=== PATIENT | female | born 1955 | race Caucasian/White ===

== ENCOUNTER 2018-09-29 15:35 | Inpatient (IN) | payer MEDICARE, MEDICAID ==
[2018-09-29] MEDS ORDERED: Sodium Chloride 0.9% 1,000 ML IV ONE (15:43)
[2018-09-29 16:14] LABS: HEMATOCRIT 47.8 % (41.0-60); HEMOGLOBIN 15.8 gm/dL (12-16); MEAN CELL VOLUME 94.1 fl (81-100); MEAN CORPUSCULAR HGB CONC 32.9 pg (28.0-36.0); MEAN PLATELET VOLUME 8.7 fl; PLATELET COUNT 348 Th/cmm (150-400); RED BLOOD COUNT 5.08 Mil/cmm (3.80-5.10); RED CELL DISTRIBUTION WIDTH 13.9 % (11.5-20.0)
[2018-09-29 16:16] LABS: WHITE BLOOD COUNT 16.9 Th/cmm (4.8-10.8)
--- NOTE | 2018-09-29 16:21 | ED Physician Chart ---
ED Chief Complaint/HPI - Patient Information Date Seen:: 09/29/18 Time Seen:: 15:55 Chief Complaint:: Weakness History of Present Illness:: onset x 3 days of generalized weakness, failure to thrive, and poor oral intake ; no report of trauma, H/As, S/T, neck pain, cough, C/P, SOB, Abd. 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; Allergies:: Allergies Allergy/AdvReac Type Severity Reaction Status Date / Time iodine Allergy Verified 09/29/18 15:56 Vitals:: Vital Signs - 8 hr 09/29/18 15:56 Temp 98.6 F HR 118 RR 21 BP 110/74 O2 Sat % 93 Historian:: Patient, EMS Review:: Nurse's Note Reviewed, Old Chart Reviewed, EMS run form Reviewed ED Review of Systems - Review of Systems General/Constitutional: No fever, No chills, No weight loss, Weakness, No diaphoresis, No edema, No loss of appetite Skin: No skin lesions, No rash, No bruising Head: No headache, No light-headedness Eyes: No loss of vision, No pain, No diplopia ENT: No earache, No nasal drainage, No sore throat, No tinnitus Neck: No neck pain, No swelling, No thyromegaly, No stiffness, No mass noted Cardio Vascular: No chest pain, No palpitations, No PND, No orthopnea, No edema Pulmonary: No SOB, No cough, No sputum, No wheezing GI: No nausea, No vomiting, No diarrhea, No pain, No melena, No hematochezia, No constipation, No hematemesis G/U: No dysuria, No frequency, No hematuria, No nacturia 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: No vaginal discharge, No abnormal vaginal bleed, No contraction Musculoskeletal: No bone or joint pain, No back pain, No muscle pain Endocrine: No polyuria, No polydipsia Psychiatric: No prior psych history, No depression, No anxiety, No suicidal ideation, No homicidal ideation, No auditory hallucination, No visual hallucination Hematopoietic: No bruising, No lymphadenopathy Allergic/Immuno: No urticaria, No angioedema Neurological: No syncope, Focal symptoms, Weakness, No paresthesia, No headache , No seizure, No dizziness, Confusion, No vertigo ED Past Medical History - Past Medical History Obtainable: Yes Past Medical History: HTN, CAD, CVA/TIA, PUD/GERD, Arthritis, Dementia Family History: HTN Social History: Non Smoker, No Alcohol, No Drug Use, Single, Care Facility Surgical History: None Psychiatricy History: None Medication: Reviewed Family Medical History - Family Member Mother History Unknown: Yes ED Physical Exam - Physical Examination General/Constitutional: Awake, Well-developed, well-nourished, Alert, No distress, GCS 15, Non-toxic appearing, Ambulatory Head: Atraumatic Eyes: Lids, conjuctiva normal, PERRL, EOMI Skin: Nl inspection, No rash, No skin lesions, No ecchymosis, No lymphadenopathy Other Skin comments:: Poor Turgor with Dry Mucous Membranes ENMT: External ears, nose nl, TM canals nl, Nasal exam nl, Lips, teeth, gums nl , Oropharynx nl, Tonsils nl Neck: Nontender, Full ROM w/o pain, No JVD, No nuchal rigidity, No bruit, No mass, No stridor Respiratory: Nl effort/Exclusion Other Respiratory comments:: Lungs: + Rales and Rhonchi Cardio Vascular: RRR, No murmur, gallop, rubs, NL S1 S2, Carotid/Femoral/Distal pulses equal bilaterally GI: No tenderness/rebounding/guarding, No organomegaly, No hernia, Normal BS's, Nondistended, No mass/bruits, No McBurney tenderness : No CVA tenderness Extremities: No tenderness or effusion, Full ROM, normal strength in all extremities, No edema, Normal digits & nails Neuro/Psych: Alert/oriented, DTR's symmetric, Normal sensory exam, Normal motor strength, Judgement/insight normal, Mood normal, Normal gait Other Neuro/Psych comments:: + Ronal-paresis; Disoriented and Confused Misc: Normal back, No paraspinal tenderness ED Labs/Radiology/EKG Results - Lab Results Comments:: Reviewed - Radiology Results Comments:: CXR: + RML Infiltrate - EKG Interpretations EKG Time:: 17:01 Rate & Rhythm: 115; ST Comments:: non-specific st-t changes ED Septic Shock - . Is Septic Shock (SBP<90, OR Lactate>4 mmol\L) present?: No - <6hrs of presentation: Vital Signs: Vital Signs - 8 hr //18 15:56 Temp 98.6 F HR 118 RR 21 BP 110/74 O2 Sat % 93 ED Reassessment (Disposition) - Reassessment Reassessment Condition:: Improved - Diagnosis Diagnosis:: Dx: Poor Oral Intake; Failure to Thrive; Weakness; Leukocytosis; Dehydration; Sepsis; PNA; Hypernatremia; Hypercalcemia; Hypoalbuminemia; Elevated D-Dimer - Aftercare/Follow up Instructions Aftercare/Follow-Up Instructions:: Counseled pt regarding lab results/diagnosis & need follow up, Counseled pt & family regarding lab results/diagnosis & need follow up - Patient Disposition Discharge/Transfer:: Acute Care w/in this hosp Accepting Physician:: Dr. Fox Time Called:: 1744 Time Responded:: 17:45 Admitted to:: ICU Spoke to:: Dr. Fox Admitting Medical Physician:: Dr. Fox Condition at Disposition:: Stable, Improved
[2018-09-29 16:23] LABS: INR 1.16 (0.5-1.4)
[2018-09-29 16:28] LABS: ALB/GLOB RATIO 0.8 (1.0-1.8); ALBUMIN 3.6 gm/dL (3.7-5.3); ALKALINE PHOSPHATASE 86 U/L (34-104); ANION GAP 13.5 (7.0-16.0); BILIRUBIN,TOTAL 0.5 mg/dL (0.3-1.0); BUN - UREA NITROGEN 32 mg/dL (7-25); CALCIUM SERUM 10.5 mg/dL (8.6-10.3); CARBON DIOXIDE 29.1 mEq/L (21.0-31.0); CHLORIDE 128 mEq/L (98-107); CHOLESTEROL 130 mg/dL (<200); CREATININE - SERUM 0.8 mg/dL (0.6-1.2); CREATININE KINASE 48 U/L (30-223); GFR AFRICAN-AMERICAN > 60.0 ml/min (>90); GFR NON AFRICAN-AMERICAN > 60.0 ml/min; GLUCOSE 121 mg/dL (70-105); HDL -HIGH DENSITY LIPOPROTEIN 26 mg/dL (23-92); POTASSIUM SERUM 3.6 mEq/L (3.5-5.1); SGOT 69 U/L (13-39); SGPT/ALT 92 U/L (7-52); TOTAL PROTEIN,SERUM 7.9 gm/dL (6.0-8.3); TRIGLYCERIDES 196 mg/dL (<150)
[2018-09-29 16:35] LABS: AMYLASE SERUM 61 U/L (29-103); LIPASE 41 U/L (11-82)
[2018-09-29 16:36] LABS: SODIUM SERUM 167 mEq/L (136-145)
[2018-09-29 16:43] LABS: BAND NEUTROPHILE 2 % (0-10); EOSINOPHIL 3 % (0-5); LYMPHOCYTE 22 % (20-50); MONOCYTE 5 % (2-10); NEUTROPHILS 68 % (40-80)
[2018-09-29 17:24] LABS: DDIMER QUANT 561 ng/mL (100-400)
[2018-09-29] MEDS ORDERED: Levofloxacin 500mg/100mL 500 MG/100 ML BAG IV ONE (18:02)
[2018-09-29 19:21] LABS: PHENYTOIN 5.7 ug/ml (10.0-20.0)
[2018-09-29 19:57] LABS: pH 7.47 (7.35-7.45)
[2018-09-29 19:59] LABS: ALLEN TEST positive
[2018-09-29] MEDS ORDERED: Dextrose 5% 1,000 ML IV SCH (20:00)
[2018-09-29] MEDS: Albuterol/Ipratropium Neb 3 ML AERS HHN SCH (21:28)
[2018-09-29 21:48] LABS: DIGOXIN 1.1 ng/ml (0.8-2.0)
[2018-09-29] MEDS ORDERED: Piperacillin Sodium/Tazobact 3.375 gm Vial IV ONE (23:08)
[2018-09-30 00:16] LABS: URINE SOURCE FOLEY PORT
[2018-09-30 00:18] LABS: URINE BILIRUBIN NEGATIVE (NEGATIVE); URINE BLOOD LARGE (NEGATIVE); URINE GLUCOSE (UA) NEGATIVE (NEGATIVE); URINE KETONE NEGATIVE (NEGATIVE); URINE LEUKOCYTE ESTERASE MODERATE (NEGATIVE); URINE MICROSCOPIC INDICATED? YES; URINE NITRATE POSITIVE (NEGATIVE); URINE PH 5.5 (4.6 - 8.0); URINE PROTEIN 100 mg/dL (NEGATIVE)
[2018-09-30 00:38] LABS: URINE CLARITY CLOUDY (CLEAR); URINE COLOR YELLOW
[2018-09-30 00:54] LABS: URINE BACTERIA 3+ /hpf (NONE SEEN); URINE EPITHELIAL CELLS FEW /lpf (FEW); URINE WBC >100 /hpf (0-5)
[2018-09-30 01:05] VITALS: BP 117/77
[2018-09-30] MEDS: Albuterol/Ipratropium Neb 3 ML AERS HHN SCH ×4 (03:15→19:11)
[2018-09-30 04:59] LABS: % BASOPHILS 0.2 % (0.0-2.0); % EOSINOPHILS 1.3 % (0.0-5.0); % MONOCYTES 4.8 % (2.0-10.0); % NEUTROPHILS 67.7 % (40.0-80.0); EOSINOPHILE ABSOLUTE 0.2 Th/cmm (0.1-0.4); HEMATOCRIT 43.3 % (41.0-60); HEMOGLOBIN 13.8 gm/dL (12-16); LYMPHOCYTE ABSOLUTE 3.7 Th/cmm (1.5-3.0); MEAN CELL VOLUME 93.9 fl (81-100); MEAN CORPUSCULAR HEMOGLOBIN 29.8 pg (27.0-31.0); MEAN CORPUSCULAR HGB CONC 31.8 pg (28.0-36.0); MEAN PLATELET VOLUME 8.9 fl; MONOCYTE ABSOLUTE 0.7 Th/cmm (0.3-1.0); NEUTROPHILE ABSOLUTE 9.5 Th/cmm (1.8-8.0); PLATELET COUNT 349 Th/cmm (150-400); RED BLOOD COUNT 4.61 Mil/cmm (3.80-5.10); RED CELL DISTRIBUTION WIDTH 13.7 % (11.5-20.0); WHITE BLOOD COUNT 14.1 Th/cmm (4.8-10.8)
[2018-09-30] MEDS ORDERED: Piperacillin Sodium/Tazobact 3.375 gm Vial IV ONE (05:40)
[2018-09-30 07:33] LABS: ALB/GLOB RATIO 0.8 (1.0-1.8); ALBUMIN 3.2 gm/dL (3.7-5.3); ALKALINE PHOSPHATASE 76 U/L (34-104); BILIRUBIN,TOTAL 0.8 mg/dL (0.3-1.0); BUN - UREA NITROGEN 31 mg/dL (7-25); CALCIUM SERUM 9.7 mg/dL (8.6-10.3); CARBON DIOXIDE 29.2 mEq/L (21.0-31.0); CHLORIDE 126 mEq/L (98-107); CREATININE - SERUM 0.7 mg/dL (0.6-1.2); GFR AFRICAN-AMERICAN > 60.0 ml/min (>90); GFR NON AFRICAN-AMERICAN > 60.0 ml/min; GLUCOSE 143 mg/dL (70-105); POTASSIUM SERUM 3.2 mEq/L (3.5-5.1); SGOT 53 U/L (13-39); SGPT/ALT 81 U/L (7-52); TOTAL PROTEIN,SERUM 7.3 gm/dL (6.0-8.3)
[2018-09-30] MEDS ORDERED: Levofloxacin 500mg/100mL 500 MG/100 ML BAG IV ONE (07:46)
[2018-09-30 07:57] LABS: SODIUM SERUM 166 mEq/L (136-145)
--- NOTE | 2018-09-30 08:54 | Diagnostic Imaging Report ---
CHEST X-RAY: AP view INDICATION: pain COMPARISON: None FINDINGS: There is mild elevation of left hemidiaphragm. Slight increased left basal density is noted. Cardiomegaly is noted. Degenerative changes of spine are noted. There is evidence of prior cholecystectomy. The osseous structures are intact. IMPRESSION: Slight increased left basal lung markings which may be due to atelectasis or infiltrate. Cardiomegaly.
[2018-09-30] MEDS ORDERED: Potassium Chloride Elixir 20 mEq /15 mL UDC GT ONE (08:59)
--- NOTE | 2018-09-30 09:04 | Diagnostic Imaging Report ---
CHEST X-RAY: AP view INDICATION: NG tube placement COMPARISON: 09/29/2018 FINDINGS: NG tube is in place with tip in the stomach. Left basal density is noted. There is evidence of prior cholecystectomy. IMPRESSION: NG tube within the stomach. Left basal density which may be a small left effusion. Pneumonia the left base cannot be excluded.
[2018-09-30] MEDS: Dextrose 5% 1,000 ML IV SCH ×2 (09:33→16:38)
[2018-09-30] MEDS: Aspirin 81mg Chewable Tab PO SCH (09:34)
--- NOTE | 2018-09-30 09:59 | Diagnostic Imaging Report ---
CT Chest without IV contrast HISTORY: Shortness of breath COMPARISON: Chest x-ray 09/29/2018. Technique: Axial images were obtained from the base of the neck to the upper abdomen without administration of IV contrast. Coronal reconstructions were made. Total DLP to 67, CTD I 9.4 Findings: Evaluation of mediastinum is limited due to lack of IV contrast. There are postsurgical changes of the left hilar region. There is decreased size of the left lung. There is no evidence of mediastinal lymphadenopathy. The ascending aorta measures up to 3 cm. No pericardial effusion. Heart size is normal. Evaluation of the lungs demonstrates hypoventilatory and atelectatic lung changes with minimal bibasilar passive atelectatic and consolidative changes. No pleural effusions. The osseous structures demonstrate no acute abnormalities. There is mild spinal scoliosis. IMPRESSION: There appear to be postsurgical changes of the left hilar region with decreased size of the left lung and mild leftward mediastinal shift. Please correlate with clinical and surgical history and oral exams. Hypoventilatory and atelectatic lung changes with minimal passive bibasilar passive atelectatic and consolidative changes. Note faint infiltrate of the left lower lobe cannot be excluded. Please correlate clinically.
--- NOTE | 2018-09-30 10:31 | History & Physical ---
ADMIT DATE: 09/30/2018 PATIENT'S IDENTIFICATION: A 62-year-old female. CHIEF COMPLAINT: Sent to Emergency Room for altered mental status. HISTORY SOURCE: Reviewing the chart and the patient is known to me from [facility]. HISTORY OF PRESENT ILLNESS: A 62-year-old resident of [facility] has history of CVA with left-sided weakness with dysphagia, seizure disorder, history of cardiac arrhythmia, hypertension, has been followed by myself and my nurse practitioner [facility]. Noted by nursing staff, the patient is getting very weak and lethargic and the patient is not eating. The patient was noted by nursing staff to have low-grade fever as well. The patient was sent to Emergency Room where the patient was evaluated. In the Emergency Room, the patient was noted to have leukocytosis with elevated sodium of 167 and creatinine of 0.8. The patient was also noted to have high calcium of 10.5 with elevated liver function tests. The patient was advised to be admitted for further treatment. Urinalysis was consistent with UTI and chest x-ray remarkable for right lower lobe infiltrate. The patient does not provide a meaningful history. PAST MEDICAL HISTORY: Remarkable for: 1. Hypertension. 2. Seizure disorder. 3. Cerebrovascular accident. 4. Dysphagia. 5. Cardiac arrhythmia. 6. DJD. MEDICATIONS AT THE TIME OF TRANSFER: The patient is taking multiple medications, which includes Pro-Stat, digoxin, lisinopril, milk of magnesia, multivitamin, Tylenol, aspirin, cholecalciferol, Dilantin, pyridoxine. ALLERGIES: The patient is allergic to IODINE. SOCIAL HISTORY: The [facility] resides in a [facility]. No history of smoking, cigarette, alcohol, or drug use. FAMILY HISTORY: Unavailable. REVIEW OF SYSTEMS: Unable to get meaningful history from the patient. PHYSICAL EXAMINATION: GENERAL: A 62-year-old, alert, not following any commands. VITAL SIGNS: On arrival to Emergency Room, temperature 98.8, pulse is 95, respiratory rate 18, blood pressure currently is 118/73. HEENT: Normocephalic, atraumatic. Tongue more pink and coated. Oropharynx is congested. Nasal mucosa congested. NECK: Supple, no JVD. HEART: Both heart sounds are regular. CHEST AND LUNGS: Equal in expansion with expiratory wheezing. ABDOMEN: Soft. No guarding or rigidity. Bowel sounds are present. No palpable mass. EXTREMITIES: No edema. No cyanosis. Peripheral pulses . No calf tenderness noted. NEUROLOGIC: Remarkable for left-sided weakness with some degree of spasticity noted. AVAILABLE DIAGNOSTIC DATA: Has been reviewed. CLINICAL IMPRESSIONS: 1. Altered mental status secondary to metabolic encephalopathy. 2. Hypernatremia with 6.3 liter of water deficit. 3. Right lower lobe infiltrate, most likely secondary to healthcare-acquired pneumonia with possibilities of aspiration. 4. Urinary tract infection. 5. Seizure disorder. 6. Mildly abnormal liver function tests. 7. Cardiac arrhythmia. 8. Hypertension. 9. Cerebrovascular accident with left-sided weakness. 10. Dysphagia. PLAN: Admit this patient to ICU. Free water and D5W will be given as well. The patient will have a Nephrology consultation, broad spectrum antibiotics, CT scan of the chest, insert NG tube. Correct electrolytes along with check digoxin level and Dilantin level as well to rule out digoxin toxicity and Dilantin toxicity; if it is low or high, treat appropriately. The patient will have cardiac monitoring. ABG will be done as well. Follow up lab will be done. Blood cultures have been done in the Emergency Room. We will wait for the blood cultures report and urine cultures at this time. We will continue to follow consultant rn recommendations. Appropriate home medicine will be reconciled as well. Care plan has been reviewed and discussed with RN at bedside. [facility]# [id number]
--- NOTE | 2018-09-30 18:21 | Consultation ---
DATE OF CONSULTATION: 09/29/2018 RENAL CONSULTATION LOCATION: [facility] ICU bed #7. I thank you very much, Dr. Fox for this consult. IDENTIFICATION: This is a 62-year-old female patient, not able to give much history. The patient seems to be confused. History has been obtained from the medical record. HISTORY OF PRESENT ILLNESS: A 62-year-old female patient who is a resident of group home. The patient is a known case of hypertension, seizure disorder, dysphagia, CVA, DJD, and cardiac arrhythmias. The patient has left-sided weakness with dysphagia. The patient is being fed through G-tube. The patient was found to have a low grade fever and change of mental status. Because of that, the patient was taken to the Emergency Room where the patient was found to have acute renal failure, hypercalcemia, hypernatremia, and UTI. The patient has been admitted. Renal consultation has been requested. According to the nursing staff in ICU, the patient does not have any diarrhea or vomiting since admission. The patient is making urine. MEDICATIONS: At SNF; digoxin, lisinopril, milk of magnesia, Tylenol, multivitamin, cholecalciferol, Dilantin, pyridoxine, and Prostart tube feeding. PAST MEDICAL HISTORY: Seizure disorder, CVA with left hemiparesis, G-tube placement, dysphagia, cardiac arrhythmia, DJD, hypertension, and seizure disorder. ALLERGIES: The patient is allergic to IODINE. SOCIAL HISTORY: No history of alcoholism, smoking. PHYSICAL EXAMINATION: VITAL SIGNS: Temperature 98.8, pulse 95, respirations 18, and blood pressure 120/74. HEAD: Normocephalic and atraumatic. EAR, NOSE, THROAT: No bleeding or discharge. LUNGS: Good air entry. No rales or rhonchi. HEART: Regular. ABDOMEN: Soft, not distended. Bowel sounds present. EXTREMITIES: No edema of the leg. NEUROLOGIC: The patient has a left CVA. SIGNIFICANT LABORATORY DATA: WBC 14.1 and hemoglobin 13.8. Sodium 166, potassium 3.2, chloride 126, BUN 31, creatinine 0.7, blood sugar 143, and calcium 9.7, improved from 10.5. LFTs are improving. Urinalysis: Nitrite positive, large blood in the urine. IMPRESSION: 1. Acute kidney injury. 2. Water deficit. 3. Hypernatremia. 4. Urinary tract infection. 5. History of cerebrovascular accident with left hemiparesis. 6. Dysphagia with G-tube feeding. 7. History of hypertension. PLAN: 1. Agree with D5W IV hydration. 2. Agree with water NG tube. 3. The patient's kidney function, hypernatremia and hypercalcemia are expected to improve over a period of next 24-48 hours. Continue the patient on Levaquin and follow up urine culture. Case has been discussed with Dr. Fox. Thank you very much for this consult. JOB# [id number]
[2018-09-30] MEDS ORDERED: Dextrose 5% 1,000 ML IV SCH (22:00)
[2018-10-01] MEDS: Albuterol/Ipratropium Neb 3 ML AERS HHN SCH ×4 (01:41→19:35)
[2018-10-01 05:53] LABS: % BASOPHILS 0.6 % (0.0-2.0); % EOSINOPHILS 2.3 % (0.0-5.0); % LYMPHOCYTES 16.2 % (20.0-50.0); % NEUTROPHILS 76.9 % (40.0-80.0); BASOPHILE ABSOLUTE 0.1 Th/cumm (0-0.2); EOSINOPHILE ABSOLUTE 0.2 Th/cmm (0.1-0.4); HEMATOCRIT 35.3 % (41.0-60); HEMOGLOBIN 11.8 gm/dL (12-16); LYMPHOCYTE ABSOLUTE 1.7 Th/cmm (1.5-3.0); MEAN CELL VOLUME 92.4 fl (81-100); MEAN CORPUSCULAR HEMOGLOBIN 30.9 pg (27.0-31.0); MEAN CORPUSCULAR HGB CONC 33.5 pg (28.0-36.0); MEAN PLATELET VOLUME 8.7 fl; MONOCYTE ABSOLUTE 0.4 Th/cmm (0.3-1.0); NEUTROPHILE ABSOLUTE 7.9 Th/cmm (1.8-8.0); PLATELET COUNT 226 Th/cmm (150-400); RED BLOOD COUNT 3.82 Mil/cmm (3.80-5.10); RED CELL DISTRIBUTION WIDTH 12.8 % (11.5-20.0); WHITE BLOOD COUNT 10.3 Th/cmm (4.8-10.8)
[2018-10-01 07:45] LABS: ALB/GLOB RATIO 0.8 (1.0-1.8); ALBUMIN 2.7 gm/dL (3.7-5.3); ALKALINE PHOSPHATASE 64 U/L (34-104); ANION GAP 8.7 (7.0-16.0); BILIRUBIN,TOTAL 1.1 mg/dL (0.3-1.0); BUN - UREA NITROGEN 18 mg/dL (7-25); CALCIUM SERUM 9.1 mg/dL (8.6-10.3); CARBON DIOXIDE 32.7 mEq/L (21.0-31.0); CHLORIDE 111 mEq/L (98-107); CREATININE - SERUM 0.6 mg/dL (0.6-1.2); GFR AFRICAN-AMERICAN > 60.0 ml/min (>90); GFR NON AFRICAN-AMERICAN > 60.0 ml/min; GLUCOSE 145 mg/dL (70-105); PHENYTOIN 5.8 ug/ml (10.0-20.0); POTASSIUM SERUM 3.4 mEq/L (3.5-5.1); SGOT 46 U/L (13-39); SGPT/ALT 62 U/L (7-52); TOTAL PROTEIN,SERUM 6.1 gm/dL (6.0-8.3)
[2018-10-01 07:49] LABS: SODIUM SERUM 149 mEq/L (136-145)
[2018-10-01] MEDS ORDERED: Potassium Chloride 20 mEq ER Tab PO ONE (09:30)
--- NOTE | 2018-10-01 09:32 | Progress Notes ---
DATE: 10/01/2018 LOCATION: [facility] ICU bed #7. SUBJECTIVE: The patient has good urine output about 800 mL last shift, tolerating tube feeding well, IV site is without any swelling. No vomiting or diarrhea. OBJECTIVE: VITAL SIGNS: Pulse 88, respirations 20, blood pressure 108/63. Today's intake noted today 4590, urine output 1550. HEART: Regular. LUNGS: Good air entry. ABDOMEN: Soft. EXTREMITIES: No edema. LABORATORY DATA: This morning lab, WBC decreased to 10.3, hemoglobin 11.8. Chemistry not available, discussed with nursing staff, machine is broken, and it has been send out. ASSESSMENT: 1. Acute kidney injury, improving. 2. Water deficit. 3. Hypernatremia. 4. Hypokalemia. 5. Urinary tract infection. 6. Dysphagia with G-tube feeding. PLAN: Continue current treatment. Discussed with nursing staff. Once the lab is available, call me for further order. Discussed with Dr. Walker yesterday at length. JOB# [id number]
--- NOTE | 2018-10-01 10:16 | Diagnostic Imaging Report ---
CHEST X-RAY: AP view INDICATION: NG tube placement COMPARISON: 09/30/2018 FINDINGS: NG tube is seen with tip in the distal stomach. Left basal slight increased densities are noted. Mild cardiomegaly is noted. IMPRESSION: NG tube with tip in the distal stomach Left basal slight increased densities. Atelectasis or infiltrate in this region cannot be excluded.
[2018-10-01] MEDS: Aspirin 81mg Chewable Tab PO SCH (10:22)
[2018-10-01] MEDS: Dextrose 5% 1,000 ML IV SCH ×2 (10:24→23:49)
--- NOTE | 2018-10-01 11:58 | Diagnostic Imaging Report ---
CHEST X-RAY: AP view INDICATION: NG tube placement COMPARISON: Chest x-ray earlier the same day FINDINGS: NG tube is in the stomach. Left basal densities noted. Mild cardiomegaly is noted. IMPRESSION: NG tube in the stomach Left basal density which may be due to small left effusion. No focal consolidation identified.
--- NOTE | 2018-10-01 12:00 | Diagnostic Imaging Report ---
Renal ultrasound HISTORY: Acute renal failure. COMPARISON: None Technique: Sonography of the kidneys and urinary bladder was performed in multiple planes. FINDINGS: The right kidney measures 10.9 x 6.1 cm demonstrates moderate to severe hydronephrosis. No focal lesions. The left kidney measures 11.9 x 5.0 cm demonstrating an anechoic lesion measuring 2.3 x 2.2 Cm consistent with a cyst. No hydronephrosis. Gay catheter is seen within underdistended urinary bladder. IMPRESSION: Moderate to severe right hydronephrosis. Please correlate clinically. If indicated, CT examination may be obtained for further assessment. 2.3 x 2.2 cm left renal cyst. Gay catheter within nondistended urinary bladder.
--- NOTE | 2018-10-01 17:46 | Progress Notes ---
DATE: IDENTIFICATION: A 62-year-old female. SUBJECTIVE: The patient was seen and examined. The patient is more alert and awake. Nephrology input greatly appreciated. The patient's sodium has come down to 149. The patient is more alert and awake. OBJECTIVE: VITAL SIGNS: Temperature 98, pulse is 88, respiratory rate is 18, blood pressure 108/73. HEENT: No facial asymmetry. NECK: Supple, no JVD. HEART: Regular. CHEST AND LUNGS: Equal in expansion ____ expiratory wheezing. ABDOMEN: Soft. No guarding or rigidity. Bowel sounds present. No palpable mass. EXTREMITIES: No edema. AVAILABLE DIAGNOSTIC DATA: White count of 10.3, hemoglobin 11.8, platelet count of 226. Sodium 149, potassium 3.4, chloride 111, CO2 of 32.7, BUN and creatinine is 18 and 0.6, AST, ALT is 46 and 62, alkaline phosphatase is normal. Albumin of 2.7. Dilantin level was 5.8. CLINICAL IMPRESSION: 1. Hypernatremia, improving. 2. Dysphagia. 3. Protein-calorie malnutrition. 4. Abnormal liver function test. 5. Urinary tract infection. 6. Aspiration pneumonia. 7. Degenerative joint disease. 8. Decline in self-care and mobility. 9. History of cerebrovascular accident. PLAN: 1. Do the swallow evaluation and if the patient passed a swallow evaluation, discontinue NG tube. 2. Decrease IV fluid. 3. Replace potassium. 4. IV antibiotic. 5. Extra dose of Dilantin. 6. Follow lab. 7. General nursing care. 8. Care plan reviewed and discussed with staff. JOB# [id number]
[2018-10-02] MEDS: Albuterol/Ipratropium Neb 3 ML AERS HHN SCH ×4 (02:53→19:10)
[2018-10-02 05:07] LABS: % BASOPHILS 0.9 % (0.0-2.0); % EOSINOPHILS 3.4 % (0.0-5.0); % LYMPHOCYTES 23.7 % (20.0-50.0); % MONOCYTES 4.7 % (2.0-10.0); % NEUTROPHILS 67.3 % (40.0-80.0); BASOPHILE ABSOLUTE 0.1 Th/cumm (0-0.2); EOSINOPHILE ABSOLUTE 0.3 Th/cmm (0.1-0.4); HEMATOCRIT 38.4 % (41.0-60); HEMOGLOBIN 12.6 gm/dL (12-16); MEAN CELL VOLUME 91.7 fl (81-100); MEAN CORPUSCULAR HGB CONC 32.7 pg (28.0-36.0); MEAN PLATELET VOLUME 8.7 fl; MONOCYTE ABSOLUTE 0.4 Th/cmm (0.3-1.0); NEUTROPHILE ABSOLUTE 5.6 Th/cmm (1.8-8.0); PLATELET COUNT 233 Th/cmm (150-400); RED BLOOD COUNT 4.19 Mil/cmm (3.80-5.10); RED CELL DISTRIBUTION WIDTH 12.7 % (11.5-20.0); WHITE BLOOD COUNT 8.4 Th/cmm (4.8-10.8)
[2018-10-02 05:19] LABS: ALB/GLOB RATIO 0.9 (1.0-1.8); ALKALINE PHOSPHATASE 78 U/L (34-104); ANION GAP 12.1 (7.0-16.0); BILIRUBIN,TOTAL 0.8 mg/dL (0.3-1.0); BUN - UREA NITROGEN 13 mg/dL (7-25); CALCIUM SERUM 9.2 mg/dL (8.6-10.3); CARBON DIOXIDE 28.4 mEq/L (21.0-31.0); CHLORIDE 109 mEq/L (98-107); CREATININE - SERUM 0.6 mg/dL (0.6-1.2); GFR AFRICAN-AMERICAN > 60.0 ml/min (>90); GFR NON AFRICAN-AMERICAN > 60.0 ml/min; GLUCOSE 105 mg/dL (70-105); POTASSIUM SERUM 3.5 mEq/L (3.5-5.1); SGOT 31 U/L (13-39); SGPT/ALT 46 U/L (7-52); SODIUM SERUM 146 mEq/L (136-145); TOTAL PROTEIN,SERUM 6.5 gm/dL (6.0-8.3)
[2018-10-02] MEDS: Aspirin 81mg Chewable Tab PO SCH (09:43)
--- NOTE | 2018-10-02 22:58 | Consultation ---
DATE OF CONSULTATION: 10/02/2018 UROLOGY CONSULT REASON FOR CONSULTATION: Seen for hydronephrosis. HISTORY OF PRESENT ILLNESS: The patient is a 62-year-old, admitted through the Emergency Room for weakness, failure to thrive. She is unable to provide adequate history has she had stroke and possibly neurological deficit from that. MEDICAL HISTORY: 1. Consist of a stroke with left-sided weakness and dysphagia. 2. Seizure disorder. 3. Cardiac arrhythmias 4. Hypertension. 5. History of hypertension. 6. History of degenerative joint disease. MEDICATIONS BEFORE ADMISSION: Digoxin, lisinopril, vitamins, aspirin, vitamin D, Dilantin, and pyridoxine. ALLERGIES: IODINE. SOCIAL HISTORY: [facility] resident without significant tobacco, alcohol or drug problems. REVIEW OF SYSTEMS: Gathered from the chart, came in for weakness, lethargy and possibly fever. There is no active seizure noted. No sore throat. She does not have chest pain, coughing or shortness of breath. There is no abdominal pain, vomiting or diarrhea. PHYSICAL EXAMINATION: GENERAL: On exam, she is awake, but unable to communicate meaningfully. Speech is garbled as well. VITAL SIGNS: Temperature 97.3, heart rate 87, blood pressure 116/76. She is in the ICU. No fever recorded in the hospital. HEAD AND NECK: Normocephalic. Trachea central. Pupils equal and reactive. No jaundice. Thyroid and lymph nodes not palpable. Carotid bruit absent. CHEST: Symmetrical. LUNGS: Clear. No rales or rhonchi. HEART: Sounds normal in sinus rhythm, no murmur. ABDOMEN: Soft, nontender, no organomegaly, mass, or hernia. EXTREMITIES: No edema or lymphadenopathy. NEUROLOGIC: Left-sided weakness and compromise higher functions. LAB: CT of the chest shows post-surgical changes in the left hilar area, hypoventilation, and faint infiltrate left lower lobe. Renal ultrasound shows [id number] right hydronephrosis and left renal cyst. White count 8.4 down from 14.1 on admission, hemoglobin 12.6. PT, PTT unremarkable. D-dimer elevated to 561. Sodium was up to 166 on admission and now down to 146, potassium 3.5, BUN 31, creatinine 0.6, bilirubin 1.1, AST 46, ALT 62. Troponins normal. Albumin low 3.0. Urinalysis positive for nitrites and large amount of blood more than 100 white cells, 3+ bacteria. Urine culture growing E. coli resistant to several antibiotics including quinolones. Currently on Gay catheter. IMPRESSION: 1. Incidental right hydronephrosis, possibly from a neurogenic bladder unless she has had a Gay for a long time, which has not been confirmed. We need to obtain records from the custodial about this history and if there was any intervention for the hydronephrosis as well as when it was first noted if at all. Given a general condition, I would be hesitant to put in a stent, but would probably try a long-term Gay catheter to see if this hydronephrosis can be improved. It would also be secondary to a noncompliant hyperreflexic bladder from the stroke again, which may improve with the Gay catheter. If we did not get any answers, the retrograde may have to be done. 2. History of stroke with left-sided weakness. 3. History of hypertension, stable. 4. History of seizure disorder, no recurrence. 5. History of cardiac arrhythmias, stable. JOB# [id number]
--- NOTE | 2018-10-02 23:35 | Progress Notes ---
DATE: 10/02/2018 IDENTIFICATION: A 61-year-old female. SUBJECTIVE: The patient seen and examined. The patient is more alert and awake. The patient wants to eat. OBJECTIVE: VITAL SIGNS: Temperature 97.6, pulse 67, respiratory rate is 18, blood pressure 101/60. HEENT: No facial asymmetry. NECK: Supple, no JVD. HEART: Regular. CHEST AND LUNG: Equal in expansion, no expiratory wheezing. ABDOMEN: Soft. EXTREMITIES: No edema. AVAILABLE DIAGNOSTIC DATA: Sodium of 146, BUN and creatinine is normal. White count is normal. CLINICAL IMPRESSION: 1. Hypernatremia. 2. Altered mental status, better. 3. Dysphagia. 4. Cerebrovascular accident by history. 5. Complicated urinary tract infection. 6. Hypertension. 7. Degenerative joint disease. 8. High risk for fall. 9. Aspiration pneumonia. 10. Protein-calorie malnutrition. PLAN: 1. P.o. diet. 2. IV fluid. 3. Correct electrolytes. 4. Cardiac monitoring. 5. General nursing care. 6. Monitor labs. 7. Follow applications consultant recommendation. 8. Care plan reviewed and discussed with staff. JOB# [id number]
[2018-10-03] MEDS: Albuterol/Ipratropium Neb 3 ML AERS HHN SCH ×4 (00:43→18:47)
[2018-10-03] MEDS: Dextrose 5% 1,000 ML IV SCH (03:45)
[2018-10-03 06:15] LABS: % BASOPHILS 0.3 % (0.0-2.0); % LYMPHOCYTES 24.7 % (20.0-50.0); % MONOCYTES 5.5 % (2.0-10.0); % NEUTROPHILS 65.5 % (40.0-80.0); EOSINOPHILE ABSOLUTE 0.3 Th/cmm (0.1-0.4); HEMATOCRIT 36.3 % (41.0-60); HEMOGLOBIN 12.2 gm/dL (12-16); LYMPHOCYTE ABSOLUTE 2.1 Th/cmm (1.5-3.0); MEAN CELL VOLUME 91.4 fl (81-100); MEAN CORPUSCULAR HEMOGLOBIN 30.6 pg (27.0-31.0); MEAN CORPUSCULAR HGB CONC 33.5 pg (28.0-36.0); MEAN PLATELET VOLUME 8.7 fl; MONOCYTE ABSOLUTE 0.5 Th/cmm (0.3-1.0); NEUTROPHILE ABSOLUTE 5.7 Th/cmm (1.8-8.0); PLATELET COUNT 270 Th/cmm (150-400); RED BLOOD COUNT 3.97 Mil/cmm (3.80-5.10); RED CELL DISTRIBUTION WIDTH 12.7 % (11.5-20.0); WHITE BLOOD COUNT 8.6 Th/cmm (4.8-10.8)
[2018-10-03 07:20] LABS: ALB/GLOB RATIO 0.9 (1.0-1.8); ALBUMIN 3.1 gm/dL (3.7-5.3); ALKALINE PHOSPHATASE 76 U/L (34-104); ANION GAP 9.8 (7.0-16.0); BILIRUBIN,TOTAL 0.6 mg/dL (0.3-1.0); BUN - UREA NITROGEN 13 mg/dL (7-25); CALCIUM SERUM 9.4 mg/dL (8.6-10.3); CARBON DIOXIDE 31.9 mEq/L (21.0-31.0); CHLORIDE 107 mEq/L (98-107); CREATININE - SERUM 1.1 mg/dL (0.6-1.2); GFR AFRICAN-AMERICAN > 60.0 ml/min (>90); GFR NON AFRICAN-AMERICAN 53.7 ml/min; GLUCOSE 87 mg/dL (70-105); MAGNESIUM 2.3 mg/dL (1.9-2.7); SGOT 27 U/L (13-39); SGPT/ALT 39 U/L (7-52); SODIUM SERUM 146 mEq/L (136-145); TOTAL PROTEIN,SERUM 6.6 gm/dL (6.0-8.3)
[2018-10-03 07:39] LABS: POTASSIUM SERUM 2.7 mEq/L (3.5-5.1)
[2018-10-03] MEDS: Aspirin 81mg Chewable Tab PO SCH (08:55)
[2018-10-03] MEDS: Potassium Chloride 20 mEq ER Tab PO SCH ×3 (09:43→17:06)
--- NOTE | 2018-10-03 23:04 | Progress Notes ---
DATE: PATIENT'S IDENTIFICATION: A 62-year-old female. SUBJECTIVE: The patient seen and examined. The patient is lying in the bed. The patient is eating fairly well. Discussed with nursing staff, no new event reported. Urology input noted. PHYSICAL EXAMINATION: VITAL SIGNS: Temperature 96.5, pulse 84, respiratory rate 18, blood pressure 100/60. HEENT: No facial asymmetry. NECK: Supple, no JVD. HEART: Regular. CHEST AND LUNG: Equal in expansion with expiratory wheezing. ABDOMEN: Soft. EXTREMITIES: No edema. AVAILABLE DIAGNOSTIC DATA: Sodium 146, potassium 2.7, chloride 107, CO2 31.9. BUN and creatinine is 31 and 1.1. Urine culture positive for E. coli. White count of 8.6, hemoglobin 12.2, platelet count 270. CLINICAL IMPRESSION: 1. Hypernatremia. 2. Escherichia coli urinary tract infection. 3. Cerebrovascular accident. 4. Hypertension. 5. Cardiac arrhythmia. 6. Hydronephrosis. 7. Decline in self-care, mobility. 8. Dysphagia. PLAN: 1. The patient has E. coli UTI, sensitivity will be simplified with giving IV Rocephin for now. 2. Replace potassium. 3. Dysphagia diet. 4. Follow up lab. 5. Discharge planning to alf. 6. Care plan reviewed and discussed. JOB# [id number]
[2018-10-04] MEDS: Albuterol/Ipratropium Neb 3 ML AERS HHN SCH ×3 (00:23→13:32)
--- NOTE | 2018-10-04 09:38 | Progress Notes ---
DATE: SUBJECTIVE: The patient is clinically better. No major change urologically. Gay catheter draining well and clear urine. OBJECTIVE: VITAL SIGNS: Temperature 98, heart rate 102, blood pressure 98/56. ABDOMEN: Soft, nondistended. Flank is nontender. Gay catheter, no blood. EXTREMITIES: No edema. CARDIOVASCULAR: Heart sounds, sinus rhythm. LABORATORY AND DIAGNOSTIC DATA: White count 8.6, hemoglobin 12.2, both are stable. Sodium 146, now in a normal range; potassium 2.7, will need replacement; BUN 13, creatinine 1.1, somewhat worse since yesterday. IMPRESSION: 1. Right hydronephrosis, etiology unclear, probably from neurogenic bladder and chronic retention. She now has a Gay and hopefully this will improve. We will check this in the next 3-4 days to see if there has been any significant change. If not, we will have to discuss the benefits of cystoscopy and x-rays as well as stents in a chronically ill patient. Additionally, she has a normal opposite kidney and therefore it may be best to be very conservative. 2. History of stroke with left-sided weakness causing the neurogenic bladder. 3. History of frequent urinary tract infections, indicative of chronic retention and noncompliant bladder. 4. History of seizures recently, no activity. 5. History of arrhythmias, currently stable. JOB# [id number]
[2018-10-04] MEDS: Aspirin 81mg Chewable Tab PO SCH (09:56)
[2018-10-04] MEDS: Dextrose 5% 1,000 ML IV SCH (09:58)
[2018-10-04 13:09] LABS: ANION GAP 12.5 (7.0-16.0); BUN - UREA NITROGEN 13 mg/dL (7-25); CALCIUM SERUM 9.2 mg/dL (8.6-10.3); CARBON DIOXIDE 22.6 mEq/L (21.0-31.0); CHLORIDE 108 mEq/L (98-107); CREATININE - SERUM 0.6 mg/dL (0.6-1.2); GFR AFRICAN-AMERICAN > 60.0 ml/min (>90); GFR NON AFRICAN-AMERICAN > 60.0 ml/min; GLUCOSE 117 mg/dL (70-105); SODIUM SERUM 138 mEq/L (136-145)
[2018-10-04 14:00] LABS: POTASSIUM SERUM 5.1 mEq/L (3.5-5.1)
--- NOTE | 2018-10-04 19:33 | Discharge Summary ---
DATE OF DISCHARGE: 10/04/2018 PRINCIPAL DIAGNOSES: 1. Altered mental status secondary to metabolic and infectious encephalopathy. 2. Hypernatremia with 6.3 liters of fluid deficit, status post replacement. 3. Escherichia coli urinary tract infection. 4. Seizure disorder. 5. Abnormal liver function test, resolved. 6. Hypertension. 7. Cerebrovascular accident with left-sided weakness. 8. Dysphagia. BRIEF STATEMENT FOR THE REASON FOR ADMISSION: A 62-year-old resident of jail brought into the Emergency Room for evaluation of altered mental status. The patient was evaluated by Emergency Room MD, and noted to have leukocytosis with sodium of 167. The patient was admitted to ICU. Please refer to my medical H and P for further information. HOSPITAL COURSE: The patient was admitted to ICU. The patient was placed on D5W along with free water. Nephrology consultation was also requested. The patient was noted to have E. coli urinary tract infection. The patient's mental status has improved. NG tube was discontinued. The patient was placed on p.o. diet as well. The patient's electrolytes were also corrected as well. The patient did have a seizure precaution and seizure medications were continued as well. The patient was noted to have hydronephrosis and the patient was seen by urologist. It was suggested that workup can be done as an outpatient. The patient's sodium at the time of discharge was reported 138. So decision was made that the patient should be [facility] back to jail. The patient is discharged to jail in stable condition with p.o. antibiotic for her E. coli UTI will be continued along with other medication as the patient is receiving. The patient will be followed by myself and my nurse practitioner. At the time of discharge, all of her medications were reconciled. JOB# [id number]
--- NOTE | 2018-10-04 21:11 | Progress Notes ---
DATE: 10/04/2018 LOCATION: Room #14, bed B, [facility]. The patient has been transferred out of ICU. The patient has good urine output. The patient's hypokalemia has been treated with potassium. Lab not available today. OBJECTIVE: VITAL SIGNS: Temperature 97.7, blood pressure 117/73, pulse 87, respiration 18. Yesterday's intake 867, urine output 1300. HEART: Regular. LUNGS: Good air entry. ABDOMEN: Soft. EXTREMITIES: No edema. LABORATORY DATA: Today's labs not available. Yesterday, BUN and creatinine were normal, and potassium was 2.7 and sodium 146. ASSESSMENT: 1. Hypernatremia. 2. Water deficit. 3. Hypokalemia. 4. Urinary tract infection. 5. Dysphagia with tube feeding. PLAN: We will check BMP now. The patient had potassium replacement done. The patient's acute kidney injury has improved. I have instructed the nurse to call me if the patient has still low potassium, otherwise, I will sign off this case. JOB# [id number]
--- NOTE | 2018-10-04 23:39 | Progress Notes ---
DATE: 10/04/2018 PATIENT'S IDENTIFICATION: This is a 62-year-old female. SUBJECTIVE: The patient seen and examined. The patient is lying in the bed. The patient has no new complaint. The patient is more alert, awake, eating fairly well. The patient's sodium has come down to 138. PHYSICAL EXAMINATION: VITAL SIGNS: Temperature 97.2, pulse 94, respiratory rate 18, blood pressure 122/75. HEENT: No facial asymmetry. NECK: Supple, no JVD. HEART: Regular. CHEST AND LUNGS: Equal in expansion, no expiratory wheezing. ABDOMEN: Soft. No guarding or rigidity. Bowel sounds are present. No palpable mass. EXTREMITIES: No edema. AVAILABLE DIAGNOSTIC DATA: Sodium 138, potassium 5.1, chloride 108, CO2 of 22.6, BUN and creatinine is 13 and 0.6, glucose 117. CLINICAL IMPRESSION: 1. Hypernatremia, resolved. 2. Encephalopathy, better. 3. Escherichia coli urinary tract infection. 4. Hypertension. 5. Cardiac arrhythmia. 6. Degenerative joint disease. 7. History of hemorrhagic cardiovascular accident. 8. Hydronephrosis. 9. No clinical indication for any treatment at this time. 10. Dysphagia. PLAN: The patient will be discharged back to [facility]. Outpatient workup for her hydronephrosis. Continue antibiotic as prescribed. The patient will be followed by myself and my nurse practitioner in [facility]. JOB# [id number]
== END 2018-10-04 16:27 | DRG 871 ==
LOC: ER 15:35 → ICU 19:32 → TELE 10-02 20:37
PROVIDERS: ADMIT Internal Medicine; ATTEND Internal Medicine
DX: A41.9 Sepsis, unspecified organism (principal); J69.0 Pneumonitis due to inhalation of food and vomit; G93.41 Metabolic encephalopathy; N39.0 Urinary tract infection, site not specified; I69.954 Hemiplegia and hemiparesis following unspecified cerebrovascular disease affecting left non-dominant side; E87.0 Hyperosmolality and hypernatremia; N17.9 Acute kidney failure, unspecified; E46 Unspecified protein-calorie malnutrition; N13.30 Unspecified hydronephrosis; I10 Essential (primary) hypertension; R13.10 Dysphagia, unspecified; R62.7 Adult failure to thrive; I25.10 Atherosclerotic heart disease of native coronary artery without angina pectoris; K21.9 Gastro-esophageal reflux disease without esophagitis; M19.90 Unspecified osteoarthritis, unspecified site; F03.90 Unspecified dementia, unspecified severity, without behavioral disturbance, psychotic disturbance, mood disturbance, and anxiety; E86.0 Dehydration; E83.52 Hypercalcemia; E88.09 Other disorders of plasma-protein metabolism, not elsewhere classified; G40.909 Epilepsy, unspecified, not intractable, without status epilepticus; E87.6 Hypokalemia; B96.20 Unspecified Escherichia coli [E. coli] as the cause of diseases classified elsewhere; Z68.23 Body mass index [BMI] 23.0-23.9, adult; Z82.49 Family history of ischemic heart disease and other diseases of the circulatory system; Z91.81 History of falling
CPT/HCPCS: 36415-UA; 36600-90; 71045-TC; 71250-TC; 76770-TC; 80048-TC; 80053-TC; 80061-TC; 80162-TC; 80185-TC; 81001-TC; 82150-TC; 82550-TC; 82803-TC; 83605; 83690-TC; 83735-TC; 83880-TC; 84484-TC; 85007-TC; 85025-TC; 85379-TC; 85610-TC; 85730-TC; 87086-90; 93005; 94640; 94760; 96375; J1956; J2405; J2543; J7070; X3401; Z7610